=== PATIENT | female | born 1960 | race African-American/Black ===

== ENCOUNTER 2024-05-20 04:14 | Day surgery (SDC) | payer OTHER ==
[2024-05-19 16:38] VITALS: BMI 28.3
[2024-05-20] MEDS ORDERED: BUPIVACAINE HCL/PF 0.5% (5MG/ML) 10 ML VIAL ONE (07:55)
[2024-05-20] MEDS: BUPIVACAINE HCL/PF 0.5% (5MG/ML) 10 ML VIAL IJ ONE (11:17)
[2024-05-20 11:51] VITALS: RESP 18; TEMP 98
[2024-05-20] MEDS ORDERED: ACETAMINOPHEN 500 MG TABLET (FP) PO PRN (11:53)
[2024-05-20 12:00] VITALS: BP 120/72; PULSE 60
== END 2024-05-20 12:02 | disposition home or self-care (01) ==
LOC: JASU-SURG 04:14
PROVIDERS: ATTEND Pain Medicine Pain Medicine
PROC: 3E0T3BZ Introduction of Anesthetic Agent into Peripheral Nerves and Plexi, Percutaneous Approach (ICD-10-PCS; principal; 2024-05-20 10:30)
DX: M47.812 Spondylosis without myelopathy or radiculopathy, cervical region (principal)
CPT/HCPCS: 76000-TC-FY

== ENCOUNTER 2024-06-24 03:47 | Day surgery (SDC) | payer OTHER ==
[2024-06-22 15:38] VITALS: BMI 28.3
[2024-06-24] MEDS ORDERED: BUPIVACAINE HCL/PF 0.75% 10 ML VIAL ONE (09:00)
[2024-06-24] MEDS ORDERED: ACETAMINOPHEN 500 MG TABLET (FP) PO PRN (09:37)
[2024-06-24] MEDS: BUPIVACAINE HCL/PF 0.75% 10 ML VIAL NR ONE ×3 (10:02)
[2024-06-24] MEDS: LIDOCAINE HCL 1% PRESERVATIVE FREE - 30ML VIAL IJ ONE ×2 (10:02)
[2024-06-24 10:50] VITALS: BP 117/52; PULSE 58; RESP 17; TEMP 97.9
== END 2024-06-24 10:36 | disposition home or self-care (01) ==
LOC: JASU-SURG 03:47
PROVIDERS: ATTEND Pain Medicine Pain Medicine
PROC: 3E0T3BZ Introduction of Anesthetic Agent into Peripheral Nerves and Plexi, Percutaneous Approach (ICD-10-PCS; principal; 2024-06-24 09:30)
DX: M47.816 Spondylosis without myelopathy or radiculopathy, lumbar region (principal)
CPT/HCPCS: 76000-TC-FY

== ENCOUNTER 2024-07-22 04:58 | Day surgery (SDC) | payer OTHER ==
[2024-07-20 15:08] VITALS: BMI 28.3
[2024-07-22 09:39] VITALS: RESP 20
[2024-07-22 12:29] VITALS: BP 125/59; PULSE 56; TEMP 97.7
== END 2024-07-22 13:22 | disposition home or self-care (01) ==
LOC: JASU-SURG 04:58
PROVIDERS: ATTEND Pain Medicine Pain Medicine
PROC: 3E0T33Z Introduction of Anti-inflammatory into Peripheral Nerves and Plexi, Percutaneous Approach (ICD-10-PCS; 2024-07-22)
PROC: 3E0T3BZ Introduction of Anesthetic Agent into Peripheral Nerves and Plexi, Percutaneous Approach (ICD-10-PCS; principal; 2024-07-22 12:30)
DX: M47.812 Spondylosis without myelopathy or radiculopathy, cervical region (principal)
CPT/HCPCS: 76000-TC-FY